=== PATIENT | male | born 2000 | race Caucasian/White ===

== ENCOUNTER 2020-12-21 14:09 | Emergency (ER) | payer OTHER ==
[~2020-12-21] VITALS: Ht 190.5 cm; Wt 83.9 kg
[2020-12-21 14:22] VITALS: BP 151/85
[2020-12-21] MEDS ORDERED: LIDOCAINE 1% VIAL ONE (14:54)
[2020-12-21] MEDS ORDERED: ADACEL VIAL IM ONE (15:01)
[2020-12-21] MEDS ORDERED: TRIPLE ANTIBIOTIC OINTMENT TP ONE (15:01)
--- NOTE | 2020-12-21 15:10 | ER.PDOC ---
General Chief Complaint: Extremities Stated Complaint: FINGER LACERATION Time seen by MD: 15:06 Source: patient Exam Limitations: no limitations History of Present Illness Initial Comments Laceration of left index finger with a knife at work prior to arrival. Patient had applied Dermabond prior to arrival. It took some cleaning and scraping be fore the Dermabond can be peeled off. Occurred: just prior to arrival Where: work Severity: moderate Context: laceration Location of Injury: (L) fingers (index) Past Medical History Medical History: no pertinent history Surgical History: no surgical history Family History Significant Family History: no pertinent family hx Social History Alcohol Use: none Drug Use: none Review of Systems Constitutional: no symptoms reported EENTM: no symptoms reported Respiratory: no symptoms reported Cardiovascular: no symptoms reported Gastrointestinal: no symptoms reported Skin: see HPI All Other Systems: Reviewed and Negative Physical Exam General Appearance: Alert, No Apparent Distress Hand: see diagram Wrist: nml inspection, non-tender, nml ROM 1 - Lac Neuro: sensation nml, motor nml Vascular: no vascular compromise Tendons: tendon function nml Forearm/Elbow/Arm: uninjured above wrist Head/ENT: nml inspection, pharynx nml Neck/Back: nml inspection, non-tender Resp/CVS: no resp distress, lungs clear, heart sounds nml, reg. rate & rhythm Abdomen: non-tender, no organomegaly ED LACERATION WOUND REPAIR # of Wounds/Lacerations Presen: 1 Wound Location & Length (Requi: Left hand Wound Length (cm): 3 Wound cleaned: betadine Anesthesia type: local Anesthesia: 1% Lidocaine Volume Anesthetic (ccs): 5 Wound's Depth, Shape: linear Irrigated w/ Saline (ccs): 30 Wound Repaired With: sutures Suture Size/Type: 4:0, ethilon Suture Style: interupted Number of Sutures: 5 Sterile Dressing Applied?: Yes Results/Orders Results/Orders Orders - ALEXIA ADAIR MD Lidocaine Hcl (Lidocaine 1% Vial) (12/21/20 14:54) Neomycin/Bacitracin/Polymyxinb (Triple A (12/21/20 15:01) Diph,Pertuss(Acell),Tet Vac/Pf (Adacel V (12/21/20 15:01) Diph,Pertuss(Acell),Tet Vac/Pf (Adacel V (12/21/20 15:30) Vital Signs Date Time Temp Pulse Resp B/P (MAP) Pulse Ox O2 Delivery O2 Flow Rate FiO2 12/21/20 14:22 98.0 71 16 97 12/21/20 14:22 98.7 71 16 12/21/20 14:22 98.7 71 16 151/85 (107) 97 Room Air ER DEPART Departure Time of Disposition: 15:09 Disposition: 01 HOME, SELF-CARE Impression: Primary Impression: Laceration of finger of left hand Condition: Stable Referrals: PCP,UNKNOWN (PCP) PRIMARY CARE PROVIDER Additional Instructions: Keflex Apply Neosporin daily Ibuprofen Remove sutures in 8 days at your PCP or ED Duration or Time Spent with Pa: 20 min Problem Qualifiers Primary Impression: Laceration of finger of left hand Encounter type: initial encounter Finger: index finger Damage to nail status: without damage Foreign body presence: without foreign body Qualified Codes: S61.211A - Laceration without foreign body of left index finger without damage to nail, initial encounter ALEXIA ADAIR MD Dec 21, 2020 15:10
[2020-12-21] MEDS: ADACEL VIAL IM ONE (15:22)
== END 2020-12-21 15:20 | disposition home or self-care (01) ==
LOC: ER 14:09
DX: S61.211A Laceration without foreign body of left index finger without damage to nail, initial encounter (principal); W26.0XXA Contact with knife, initial encounter; Y93.89 Activity, other specified; Y92.89 Other specified places as the place of occurrence of the external cause; Y99.8 Other external cause status
CPT/HCPCS: 12002; 90471; 90715; 99283; J2001